=== PATIENT | male | born 1995 | race Caucasian/White ===

== ENCOUNTER → 2017-12-07 | Outpatient (REF) | payer MEDICAID | LOC: M LAB REF 16:53 | DX: J02.0 Streptococcal pharyngitis (principal) | CPT/HCPCS: 87430 ==

== ENCOUNTER 2017-12-08 23:38 | Emergency (ER) | payer MEDICAID ==
[2017-12-09 01:27] LABS: BASO % 0.3 % (0.0-1.0); EOS % 0.2 % (0.0-3.0); HEMATOCRIT 40.9 % (42.0-52.0); HEMOGLOBIN 14.4 g/dl (14.0-18.0); IMMATURE GRANULOCYTE % 0.2 % (0-3.0); LYMPH # 2.4 10^3/uL (1.5-6.5); LYMPH % 19.5 % (24.0-44.0); MEAN CORPUSCULAR HEMOGLOBIN 30.3 pg (27.0-33.0); MEAN CORPUSCULAR HGB CONC 35.2 g/dl (32.0-36.5); MEAN CORPUSCULAR VOLUME 86.1 fl (80.0-96.0); MONO # 1.1 10^3/uL (0.0-0.8); MONO % 9.1 % (0.0-5.0); NEUTROPHILS # 8.6 10^3/uL (1.8-7.7); NEUTROPHILS % 70.7 % (36.0-66.0); PLATELET COUNT, AUTOMATED 240 10^3/uL (150-450); RED BLOOD COUNT 4.75 10^6/uL (4.30-6.10); RED CELL DISTRIBUTION WIDTH 11.3 % (11.5-14.5); WHITE BLOOD COUNT 12.2 10^3/uL (4.0-10.0)
[2017-12-09 01:43] LABS: ANION GAP 6 MEQ/L (8-16); BLOOD UREA NITROGEN 14 MG/DL (7-18); CARBON DIOXIDE LEVEL 28 MEQ/L (21-32); CHLORIDE LEVEL 103 MEQ/L (98-107); CREATININE FOR GFR 0.78 MG/DL (0.70-1.30); GLOMERULAR FILTRATION RATE > 60.0 (>60); GLUCOSE, FASTING 94 MG/DL (70-100); POTASSIUM SERUM 3.7 MEQ/L (3.5-5.1); SODIUM LEVEL 137 MEQ/L (136-145)
[2017-12-09] MEDS ORDERED: ISOVUE-370 76% 100ML VIAL (Q9967) As Ordered (01:53)
[2017-12-09] MEDS: AMPICILLIN SOD/SULBACTAM SOD 3 GM in D5W MINI-BAG PLUS 100 ML IV (02:45)
== END 2017-12-09 03:41 | disposition home or self-care (01) ==
LOC: M ED 23:38
DX: K12.2 Cellulitis and abscess of mouth (principal); J35.2 Hypertrophy of adenoids; J03.90 Acute tonsillitis, unspecified; Z79.899 Other long term (current) drug therapy
CPT/HCPCS: Q9967

== ENCOUNTER 2017-12-09 15:22 | Emergency (ER) | payer MEDICAID ==
[2017-12-09] MEDS: cefTRIAXone SOD 1 GM VIAL (J0696) IM (16:31)
[2017-12-09] MEDS ORDERED: LIDOCAINE 2% MDV 20 ML VIAL As Ordered (17:17)
[2017-12-09] MEDS: LIDOCAINE 2% MDV 20 ML VIAL SC (17:30)
== END 2017-12-09 18:09 | disposition home or self-care (01) ==
LOC: M ED 15:22
DX: K12.2 Cellulitis and abscess of mouth (principal); M54.5 Low back pain; Z79.899 Other long term (current) drug therapy
CPT/HCPCS: J0696

== ENCOUNTER → 2019-12-20 | Outpatient (REF) | payer MEDICAID, OTHER ==
[~2019-12-20] MED LIST: AUGM500T34 PO; BACT800T5 PO; CYCL5TAB PO; FOLB1TAB PO; NIAC500C4 PO; VITA2000 PO; VITA500C24 PO
[2019-12-20 18:50] LABS: CHLAMYDIA DNA AMPLIFICATION NEGATIVE (NEGATIVE); GC DNA AMPLIFICATION NEGATIVE (NEGATIVE)
== END ==
LOC: M LAB REF 17:03
PROVIDERS: ATTEND Family Medicine
DX: N50.811 Right testicular pain (principal)

== ENCOUNTER 2024-02-13 22:46 | Emergency (ER) | payer MEDICAID, OTHER, SELFPAY ==
[~2024-02-13] VITALS: Ht 175.3 cm; Wt 59.5 kg
[2024-02-14] MEDS: BOOSTRIX VACCINE (TETANUS/DIPHTH/ACEL. PERTUSSIS) 0.5ML SYR IM ONE (01:39)
[2024-02-14] MEDS: LIDOCAINE 1% MDV 20ML VIAL SC ONE (02:00)
[2024-02-14 02:15] VITALS: BP 120/70; TEMP 97.9; O2SAT 99
[2024-02-14] MEDS: BACITRACIN OINTMENT 30GM TUBE TOP STA (02:19)
== END 2024-02-14 02:22 | disposition home or self-care (01) ==
LOC: M ED 22:46
DX: S61.216A Laceration without foreign body of right little finger without damage to nail, initial encounter (principal); Y92.9 Unspecified place or not applicable; Y93.9 Activity, unspecified; Y99.9 Unspecified external cause status; W25.XXXA Contact with sharp glass, initial encounter; F17.290 Nicotine dependence, other tobacco product, uncomplicated; Z23 Encounter for immunization
CPT/HCPCS: 12001; 90471; 90715; 96372; 99283; J0665